=== PATIENT | female | born 1990 | race Caucasian/White ===

== ENCOUNTER 2022-08-10 05:25 | Inpatient (IN) ==
--- NOTE | 2022-07-21 14:41 | History and Physical Report ---
CHIEF COMPLAINT: Repeat section at term. HISTORY OF PRESENT ILLNESS: The patient is a 31-year-old 5, para 2. She has had 2 spontaneo us ABs. She is in good general health. Her periods are described as every 28-30 days. Her last men strual period first day was 11/08/2021, giving her an EDC of 08/16/2022. She had no early ultrasound s in this . She had a mid trimester ultrasound, which essentially put her at 08/06/2022, bu t she has a history of having large for dates baby and we felt that this was inaccurate due to the la te timing and we decided to go due date of 08/16/2022. OBSTETRICAL HISTORY: 2010, she had a boy, 7 pounds 6 ounces. She was in labor. She had cephalopelv ic disproportion, at 38 weeks' gestation. 2012, she had a girl. She was in labor, was bc luated and was felt to be close to 8 pounds and therefore was not a candidate for and had a seco nd section and a girl weighed 7 pounds 14 ounces. Presently being scheduled for repeat cesa rean section with a history of macrosomia. PAST MEDICAL HISTORY: Two children in the good health. SURGICAL HISTORY: She has had two C-sections. MEDICAL HISTORY: No history of rheumatic fever, heart disease, heart murmur, diabetes, tuberculosis. No known drug allergies. SOCIAL HISTORY: No smoking, no excessive alcohol intake. Works at [employer]. FAMILY HISTORY: Mom 79, has diabetes, heart disease. Father 79, in good health. One brother in [facility] [employer]. REVIEW OF SYSTEMS: HEAD: No symptoms of frequent or severe headaches. EYES: No symptoms of blurred vision or double vision. EARS: No symptoms of frequent ear infection or difficulty hearing. NOSE: No symptoms of frequent nosebleeds or difficulty breathing through her nose. THROAT: No symptoms of frequent or severe sore throats or difficulty swallowing. RESPIRATORY SYSTEM: No history of asthma, chest pain, or shortness of breath. PHYSICAL EXAMINATION: GENERAL: Well-developed, well-nourished 31-year-old white female, alert, oriented x3, cooperative, i n no acute distress, appeared her stated age. EYES: Conjunctivae pink. Sclerae white, no evidence of jaundice. ENT: Ears had normal light reflex bilaterally. Nose had normal mucosa. Septum is midline. There w ere no polyps. THROAT: No erythema or evidence of infection. Teeth are in good state of repair. HEAD: Normocephalic, normal distribution of hair. NECK: Supple. Trachea midline. Thyroid is not enlarged. There is no adenopathy appreciated. Both carotids are of good intensity. CHEST: Clear to auscultation and percussion. No wheezes, rales or rhonchi appreciated. HEART: Had regular rhythm. S1 and S2 are normal. BREASTS: Normal. ABDOMEN: Estimated weight 8 pounds. Well-healed Pfannenstiel scar. PELVIC: Cervix was posterior, closed, vertex presentation, floating. MUSCULOSKELETAL: Revealed no calf tenderness. IMPRESSION OF THIS CASE: Status post 2 previous sections and history of macrosomia. Job ID: [id number]
--- NOTE | 2022-08-04 09:07 | Anesthesiology Consultation ---
Date of Service August 04, 2022 Assessment & Plan (1) Encounter for pre-operative examination: - to anesthesiologist discretion if repeat bsg is needed DOS. 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 - COVID screening: Per welding machine operator ultrasonic on 08/04/2022: Travel screen negative, no known COVID-19 positive contacts or current COVID-19 related symptoms in past 2 weeks. To surgeon's discretion if preop COVID testing is needed. Chart Review Chart Review: Acceptable Risk for Surgery and Patient NOT seen in Pre Admission Testing History Surgery Operation Date: 08/10/22 07:30 Proposed Procedures p Repeat Section - Fabio Muñoz MD Height/Weight Height: 5 ft 1 in Weight: 86.183 kg Allergies Allergy/AdvReac Type Severity Reaction Status Date / Time No Known Allergies Allergy Unverified 08/04/22 07:41 Medications Home Medications Medication Instructions Recorded Confirmed Last Taken prenat.vits,priti,zlo-afcb-cmaat 1 tab PO QAM 06/10/22 08/04/22 Unknown Past Medical History Medical History No known health problems Past Family History Family History Other No family history of adverse response to anesthesia Past Surgical History Surgical History Hx of section Social History Smoking Status: Former smoker tobacco type: cigarettes Smoking cigarettes per day: quit ~6 mos ago Do You Dip or Chew Tobacco: No Hx Alcohol Use: No Hx Substance Use: No substance use type: does not use Lab Results Anesthesia Preop Results Results Anesthesia Widget: WBC 7.04 K/ul (4.8-10.8) 07/28/22 Hgb 9.8 g/dl (12.0-16.0) L 07/28/22 Hct 29.3 % (37.0-47.0) L 07/28/22 Plt 284 K/uL (130-400) 07/28/22 Na 136 mmol/L (136-145) 07/28/22 K 4.0 mmol/L (3.5-5.1) 07/28/22 Cl 106 mmol/L (98-107) 07/28/22 CO2 27 mmol/L (21-32) 07/28/22 BUN 10 mg/dl (6-23) 07/28/22 Creat 0.44 mg/dl (0.6-1.2) L 07/28/22 Glucose Level 63 mg/dl (70-99(Fasting)) L 07/28/22 PT 9.5 Seconds (9.0-12.0) 07/28/22 PTT 24.0 Seconds (21.0-31.0) 07/28/22 INR 0.9 (0.9-1.1) 07/28/22 Blood Type B Negative 07/28/22 Antibody Screen POSITIVE A 07/28/22
[2022-08-10] MEDS ORDERED: cefOXitin 2,000 MG in DEXTROSE 5% 50 ML IV SCH (06:00)
[2022-08-10] MEDS ORDERED: CITRIC ACID/SODIUM CITRATE 15 ML UDC PO SCH (06:00)
[2022-08-10] MEDS ORDERED: LACTATED RINGER'S 1,000 ML IV SCH (06:00)
[2022-08-10] MEDS ORDERED: SODIUM CHLORIDE 0.9% 250 ML IV PRN (06:10)
[2022-08-10 06:41] LABS: Basophils # (auto) 0.05 K/uL (0-0.2); Basophils % (auto) 0.5 %; Eosinophils # (auto) 0.31 K/uL (0-0.50); Eosinophils % (auto) 3.1 %; Hematocrit (blood only) 31.2 % (37.0-47.0); Hemoglobin 10.4 g/dl (12.0-16.0); Immature Granulocytes # (auto) 0.05 K/uL (0.01-0.20); Immature Granulocytes % (auto) 0.5 %; Lymphocytes % (auto) 20.1 %; Mean Corpuscular Hemoglobin 30.2 pg (25.0-34.0); Mean Corpuscular Hgb Conc 33.3 g/dL (32.0-36.0); Mean Corpuscular Volume 90.7 fL (80.0-100.0); Mean Platelet Volume 10.8 fL (9.4-12.4); Monocytes # (auto) 0.83 K/uL (0.11-0.59); Monocytes % (auto) 8.3 %; Neutrophils # (auto) 6.71 K/uL (1.40-6.50); Neutrophils % (auto) 67.5 %; Platelet Count 274 K/uL (130-400); RDW Coefficient of Variation 13.2 % (11.5-14.5); RDW Standard Deviation 43.4 fL (36.4-46.3); Red Blood Count 3.44 M/uL (4.20-5.40); White Blood Count 9.95 K/ul (4.8-10.8)
[2022-08-10] MEDS ORDERED: LACTATED RINGER'S 500 ML IV PRN (07:33)
[2022-08-10] MEDS ORDERED: NALOXONE HCL 0.4 MG/1 ML VIAL/CARP IV PRN (07:33)
[2022-08-10] MEDS ORDERED: diphenhydrAMINE 50 MG/ML VIAL IV PRN (07:33)
[2022-08-10] MEDS ORDERED: ONDANSETRON INJ 2 MG/ML 2 ML VIAL IV PRN (07:33)
[2022-08-10] MEDS ORDERED: NALOXONE HCL 0.08 MG in SYRINGE 1.8 ML IV PRN (07:33)
[2022-08-10] MEDS ORDERED: ePHEDrine sulfate 50 MG/ML AMP IV PRN (07:33)
[2022-08-10] MEDS ORDERED: MoRPHine SULFATE PF 1 MG/ML 10 ML AMP/VIAL INT SPINAL ONE (07:33)
[2022-08-10] MEDS ORDERED: NALOXONE HCL 1 MG in SODIUM CHLORIDE 0.9% 1000ML 1,000 ML IV PRN (07:33)
[2022-08-10] MEDS ORDERED: NALBUPHINE HCL INJ 10 MG/ML AMP IV PRN (07:33)
[2022-08-10] MEDS ORDERED: PROMETHAZINE HCL 12.5 MG in SODIUM CHLORIDE 0.9% 50 ML IV PRN (07:33)
[2022-08-10] MEDS ORDERED: MoRPHine SULFATE PF 1 MG/ML 10 ML AMP/VIAL ONE (07:45)
[2022-08-10] MEDS ORDERED: SODIUM CHLORIDE 0.9% 1000ML 1,000 ML IV SCH (07:45)
[2022-08-10] MEDS ORDERED: NO NARCOTICS OR SEDATIVES SCH (07:45)
[2022-08-10] MEDS ORDERED: DC INTRASPINAL MORPHINE SCH (07:45)
[2022-08-10] MEDS ORDERED: OXYTOCIN 10 UNITS/ML 10ML VIAL ONE ×3 (08:05→09:08)
[2022-08-10] MEDS ORDERED: OXYTOCIN 10 UNITS/ML 10ML VIAL IM ONE (08:31)
[2022-08-10] MEDS: LACTATED RINGER'S 1,000 ML IV SCH ×4 (08:59→18:11)
[2022-08-10] MEDS ORDERED: ePHEDrine sulfate 50 MG/ML SYR ONE (09:09)
[2022-08-10] MEDS ORDERED: PHENYLEPHRINE 100MCG/ML 5ML SYR ONE (09:09)
[2022-08-10] MEDS ORDERED: HYDROCORTISONE ACETATE 25 MG SUPP PR PRN (09:13)
[2022-08-10] MEDS ORDERED: SENNA 8.6 MG TAB PO PRN (09:13)
[2022-08-10] MEDS ORDERED: DIPHTHERIA/TETANUS/PERTUSSIS 0.5mL SYR/VIAL (Age 7+yrs) IM ONE (09:13)
[2022-08-10] MEDS ORDERED: KETOROLAC 30 MG/ML VIAL IV PRN ×2 (09:13→11:16)
[2022-08-10] MEDS ORDERED: BENZOCAINE 20% AER SPR 82.5 GM CAN EXT PRN (09:13)
[2022-08-10] MEDS ORDERED: MAGNESIUM HYDROXIDE SUSP 30 ML UDC PO PRN (09:13)
--- NOTE | 2022-08-10 09:19 | Post Operative Brief Note ---
Immediate Post Op Note v1 Date of Surgery August 10, 2022 Pre & Post Diagnosis Operation Date: 08/10/22 07:30 Pre-Op Diagnosis: 1. IUP at 39 weeks 2. Repeat Post-Op Diagnosis: Same I identified the patient and participated in the time-out.: Yes Procedure Operation Date: 08/10/22 07:30 Actual Procedures p Section in LD; Repeat Lower Uterine Transverse Section for the of a live girl infant at 0825(Bilateral) - Fabio Muñoz MD Surgeon Fabio Muñoz MD Mathematician Dr Vieira Estimated Blood Loss 600 Findings Consistent with Post-Op Diagnosis normal tubes and ovaries omental adhesions anterior abdominal wall Drains Flowers Catheter (Flowers catheter inserted without difficulty. Patent and draining clear yellow urine. ) Anesthesia Type Spinal Complications none
--- NOTE | 2022-08-10 09:52 | Operative Report (OR) ---
DATE OF OPERATION: 08/10/2022. The patient is 5, para 3. This is an operative notation of a repeat low segment section. INDICATIONS FOR SURGERY: Intrauterine at 39 weeks 1 day. Two previous sections. PREOPERATIVE DIAGNOSIS: A 39-week , previous . POSTOPERATIVE DIAGNOSES: A 39-week , previous , delivered live female . SURGEON: Giles Muñoz MD UNIVERSITY SERVICES PROGRAM ASSOCIATE: Nakita Maldonado MD. ESTIMATED BLOOD LOSS: 600 mL. ANESTHESIA: Spinal. OPERATIVE FINDING AND PROCEDURE: The patient was brought to the OR table, correctly identified by armband and conversation. Spinal anesthesia was administered. Lower abdomen was painted with an alcohol based sterilizing solution. A Flowers catheter was inserted aseptically in the bladder, connected to gravity drainage. The prep was allowed to dry for 3 minutes and then the patient was draped in the usual sterile fashion. Timeout was done. The patient was identified. We checked for adequate anesthesia level and when these things had been performed, we proceeded to make an incision through a previous Pfannenstiel scar, carried down the incision to the anterior fascia. The fascia was then entered down to the level of the muscle. The fascia was then incised laterally with the scissors. Then, the fascia was grasped with straight Jesusita's and then undermined bluntly up towards the umbilicus and down towards the pelvic brim. Following this, the recti muscles were in the midline. The peritoneum was carefully entered. The perineum was extended and an adequate exposure of the lower uterine segment was achieved. We palpated a vertex presentation, it was moderately low. We made an incision above the vesicouterine fold, carried through the muscle, then entered the amniotic fluid and then extended bluntly with 2 fingers. I applied a Vectis retractor to the head and with fundal pressure, the head was delivered through the incision. There was a nuchal cord x1, which was reduced over the head. was suctioned through the mouth and the nose. Cord was allowed to pulse for 1 minute. We showed the baby to the mother, then transferred the child to the industrial refrigeration mechanic. Cord blood was taken. Placenta was removed manually. Uterus, tubes, and ovaries were brought out through the incision. Tubes and ovaries were normal. Placenta looked normal. The uterine cavity was wiped clean with a clean sponge. 10 units of Pitocin was injected into the myometrium. The myometrium was then approximated in 2 layers. The deep layer was approximated with a running heavy duty chromic. Then, a Vicryl was placed in a horizontal manner to approximate the fascial area above the muscle layer and then we did some additional interrupted [id number] Vicryls to complete the fascial approximation. I then did a 3-0 chromic to approximate the bladder flap and covered this with the peritoneum. I inspected the incision, it was hemostatic. Cleansed the pelvis of all blood clots and debris. Reinserted uterus, tubes, and ovaries into the abdominal cavity. Then, I palpated the undersurface of the incision. There was some omentum that was adhesed to the previous incision. I used electrocautery to take it down and then I used a continuous chromic gut suture to approximate the perineal edges. Then, I used interrupted [id number] sutures of chromic catgut to approximate the muscle layer. Then, I used a continuous interlocking suture of Vicryl on each side to approximate the fascia from the left side to the middle, from the right side to the middle, cleanse the incision out, use a running plain to approximate the subcutaneous and then approximate the skin edges with staple clips. The patient tolerated the procedure well and left the OR in good condition. Job ID: [id number] DAVINA
--- NOTE | 2022-08-10 11:07 | Anesthesiology Progress Note ---
Date of Service August 10, 2022 Anesthesia Post Procedure Vital Signs Vital Signs: Temp Pulse Resp BP Pulse Ox O2 Del Method 08/10/22 10:50 18 Room Air 08/10/22 10:20 36.6 C 20 08/10/22 10:10 18 08/10/22 10:00 18 08/10/22 09:50 20 08/10/22 09:40 20 08/10/22 09:30 16 08/10/22 09:16 36.6 C 18 Room Air 08/10/22 05:50 36.9 C 18 Room Air 08/10/22 11:01 79 98 08/10/22 10:59 66 121/79 08/10/22 10:56 67 98 08/10/22 10:51 79 99 08/10/22 10:49 71 121/84 08/10/22 10:46 81 99 08/10/22 10:41 77 99 08/10/22 10:39 73 115/84 08/10/22 10:36 79 98 08/10/22 10:31 74 99 08/10/22 10:29 77 122/68 08/10/22 10:26 66 99 08/10/22 10:22 68 131/65 08/10/22 10:21 69 99 08/10/22 10:16 71 99 08/10/22 10:11 66 98 08/10/22 10:09 62 126/61 08/10/22 10:06 71 99 08/10/22 10:01 68 99 08/10/22 09:59 70 130/65 08/10/22 09:56 70 100 08/10/22 09:51 70 99 08/10/22 09:49 61 127/71 08/10/22 09:46 67 99 08/10/22 09:41 70 99 08/10/22 09:39 68 131/61 08/10/22 09:36 75 100 08/10/22 09:33 62 89 L 08/10/22 09:31 64 100 08/10/22 09:29 55 L 147/76 H 08/10/22 09:26 56 L 99 08/10/22 09:21 60 99 08/10/22 09:16 58 L 131/78 99 08/10/22 05:43 36.9 C 71 18 126/84 Pain Intensity Abdomen: Pain Intensity: 6 Transfer of Care Handoff Completed per policy Notes Mental Status: alert / awake / arousable and participated in evaluation Nausea / Vomiting: adequately controlled Pain: adequately controlled Airway Patency, RR, SpO2: stable & adequate BP & HR: stable & adequate Hydration State: stable & adequate Neuraxial Anesthesia: was administered and sensory block is resolving Anesthetic Complications: no major complications apparent and Pt Satisfied with anesthetic care
[2022-08-10] MEDS ORDERED: MEPERIDINE HCL 25 MG/ML CARP/VIAL IV PRN (11:16)
[2022-08-10] MEDS ORDERED: ACETAMINOPHEN 1,000 MG/100 ML VIAL IV STA (11:16)
[2022-08-10] MEDS ORDERED: MoRPHine SULFATE 2 MG/ML CARP IV PRN (11:16)
[2022-08-10] MEDS ORDERED: HYDROmorphone INJ 0.5 MG/0.5 ML SYR IV PRN (11:16)
[2022-08-10] MEDS: OXYTOCIN 20 UNITS in LACTATED RINGER'S 1,000 ML IV SCH ×2 (12:12→20:17)
[2022-08-10] MEDS: SIMETHICONE 80 MG CHEW PO SCH ×3 (13:00→20:17)
[2022-08-10] MEDS: DOCUSATE SODIUM 100 MG CAP PO SCH (20:17)
[2022-08-11] MEDS ORDERED: ONDANSETRON INJ 2 MG/ML 2 ML VIAL IV PRN (01:34)
[2022-08-11] MEDS ORDERED: ZOLPIDEM TARTRATE 5 MG TAB PO PRN (01:34)
[2022-08-11] MEDS ORDERED: diphenhydrAMINE 50 MG/ML VIAL IV PRN (01:34)
[2022-08-11] MEDS ORDERED: PROMETHAZINE HCL 25 MG in SODIUM CHLORIDE 0.9% 50 ML IV PRN (01:34)
[2022-08-11] MEDS ORDERED: MEPERIDINE HCL 50 MG/ML CARP IV PRN (01:34)
[2022-08-11] MEDS ORDERED: diphenhydrAMINE Capsule 25 MG CAP PO PRN (01:34)
[2022-08-11] MEDS: IBUPROFEN 600 MG TAB PO PRN ×4 (06:25→20:52)
[2022-08-11 07:00] LABS: Basophils # (auto) 0.05 K/uL (0-0.2); Basophils % (auto) 0.5 %; Eosinophils % (auto) 1.8 %; Hematocrit (blood only) 29.7 % (37.0-47.0); Hemoglobin 9.7 g/dl (12.0-16.0); Immature Granulocytes # (auto) 0.06 K/uL (0.01-0.20); Immature Granulocytes % (auto) 0.5 %; Lymphocytes # (auto) 1.35 K/uL (1.2-3.4); Lymphocytes % (auto) 12.4 %; Mean Corpuscular Hemoglobin 29.8 pg (25.0-34.0); Mean Corpuscular Hgb Conc 32.7 g/dL (32.0-36.0); Mean Corpuscular Volume 91.1 fL (80.0-100.0); Mean Platelet Volume 10.5 fL (9.4-12.4); Monocytes # (auto) 0.84 K/uL (0.11-0.59); Monocytes % (auto) 7.7 %; Neutrophils # (auto) 8.42 K/uL (1.40-6.50); Neutrophils % (auto) 77.1 %; Platelet Count 267 K/uL (130-400); RDW Coefficient of Variation 13.2 % (11.5-14.5); RDW Standard Deviation 43.6 fL (36.4-46.3); Red Blood Count 3.26 M/uL (4.20-5.40); White Blood Count 10.92 K/ul (4.8-10.8)
[2022-08-11] MEDS: DOCUSATE SODIUM 100 MG CAP PO SCH ×2 (08:54→20:52)
[2022-08-11] MEDS: SIMETHICONE 80 MG CHEW PO SCH ×4 (08:54→20:52)
[2022-08-11] MEDS: FERROUS SULFATE 325 MG TAB PO SCH (08:54)
[2022-08-11] MEDS: PRENATAL VITAMIN 1 TAB PO SCH (08:54)
--- NOTE | 2022-08-11 09:27 | Obstetrical Progress Note ---
Date of Service August 11, 2022 Assessment & Plan Admission and Anticipated Discharge Date Admission Date: August 10, 2022 Subjective abdomen soft and non tender passing gas bowel sounds normal bandage removed incision is clean and dry vaginal bleeding scant hgb 9.7 Results & Data Vital Signs (Past 12 Hours) Vital Signs Temp Pulse Resp BP Pulse Ox O2 Del Method 08/11/22 03:20 36.9 C 74 18 134/79 97 Room Air 08/11/22 01:25 18 96 08/11/22 00:30 18 97 08/10/22 23:25 18 98 08/10/22 23:25 36.8 C 75 18 126/82 98 Room Air 08/10/22 22:10 18 98
[2022-08-11] MEDS: oxyCODONE/ACETAMINOPHEN 5mg/325mg TAB PO PRN ×2 (14:46→20:52)
[2022-08-11] MEDS ORDERED: bisacodyL 5 MG TABEC PO SCH (20:00)
[2022-08-12] MEDS: oxyCODONE/ACETAMINOPHEN 5mg/325mg TAB PO PRN ×3 (04:32→12:58)
[2022-08-12] MEDS: IBUPROFEN 600 MG TAB PO PRN ×3 (04:32→12:57)
[2022-08-12 06:39] LABS: Hematocrit (blood only) 26.8 % (37.0-47.0); Hemoglobin 8.7 g/dl (12.0-16.0)
[2022-08-12] MEDS ORDERED: Nursing to Pharmacy Communication SCH (07:45)
[2022-08-12] MEDS: DOCUSATE SODIUM 100 MG CAP PO SCH (08:31)
[2022-08-12] MEDS: FERROUS SULFATE 325 MG TAB PO SCH (08:31)
[2022-08-12] MEDS: SIMETHICONE 80 MG CHEW PO SCH ×2 (08:31→12:57)
[2022-08-12] MEDS: PRENATAL VITAMIN 1 TAB PO SCH (08:31)
[2022-08-12] MEDS ORDERED: bisacodyL 10 MG SUPP PR PRN (09:13)
--- NOTE | 2022-08-12 12:02 | Obstetrical Progress Note ---
Date of Service August 12, 2022 Assessment & Plan Admission and Anticipated Discharge Date Admission Date: August 10, 2022 Subjective abdomen soft and non tender passing flatus incision is clean and dry ambulating well no calf tenderness vaginal bleeding scant hgb 8.7 Results & Data Vital Signs (Past 12 Hours) Vital Signs Temp Pulse Resp BP Pulse Ox O2 Del Method 08/12/22 07:45 36.9 C 88 16 107/64 98 Room Air
--- NOTE | 2022-08-12 12:33 | Discharge Summary (DS) ---
HOSPITAL COURSE: The patient is a 3, para 3, 2 spontaneous ABs. Blood type is B negative. Group B strep positive. She had two previous sections. She was admitted at 39 weeks and 1 day for a repeat low segment section. On the day of admission, she was given prophylactic a ntibiotics, taken to the OR where she underwent repeat low segment section without any diffi culty. Her preoperative hemoglobin was 10.4, hematocrit 31.2. Estimated blood loss at the time of s urgery was 600 mL. Postoperatively she did well. Her bowel sounds returned in less than 24 hours and she requested discharge her second postoperative day, at which time she had remained afebrile. The incision was clean and dry. Vaginal bleeding was scant. Her hemoglobin had dropped to 8.7 and she w as given the usual instructions to call the office if she had a temperature over 100 or any heavy ble eding and to continue to take her vitamins. She was also given a prescription for Percocet for pain control and told to return to the office in one week for removal of netta. Job ID: [id number]
== END 2022-08-12 16:30 | disposition home or self-care (01) | DRG 788 ==
LOC: 4S1 05:25 → EDSTATUS 07:30 → 4E2 12:20